=== PATIENT | female | born 1975 | race Caucasian/White ===

== ENCOUNTER 2020-10-31 06:40 | Day surgery (SDC) | payer MEDICAID ==
[2020-10-31] MEDS ORDERED: Sodium Chloride 0.9% 1,000 ML IV SCH (07:00)
[2020-10-31] MEDS ORDERED: Propofol 200 MG/20 ML SDV ONE (07:12)
[2020-10-31] MEDS ORDERED: Midazolam 1 MG/ML 2 ML SDV ONE (07:13)
[2020-10-31] MEDS ORDERED: fentaNYL 100 MCG/2 ML SDV ONE (07:13)
[2020-10-31 10:05] VITALS: BP 115/71; PULSE 46
--- NOTE | 2020-10-31 10:38 | OR ---
DATE OF PROCEDURE: 10/31/2020 SURGEON: Bobby Higgins MD PROCEDURE: Colonoscopy. FINDINGS: 5 mm polyp in the ascending colon, approximately 5 mm, completely removed using cold biopsy forceps. COMPLICATIONS: None. BUSINESS ANALYTICS SPECIALIST: None. ANESTHESIA: MAC. RISKS: Risks, benefits, alternatives, and limitations including but not limited to infection, bleeding, and perforation along with false positives and false negatives were explained to the patient who wished to proceed. PROCEDURE IN DETAIL: The patient was placed in left lateral decubitus position. Digital rectal exam was performed without abnormality. Scope was introduced and advanced atraumatically to the ileocecal valve. A photo was taken. Scope was brought back to the ascending, transverse, descending colon, and retroflexed. No evidence of old or new blood. No masses. The diverticulosis would be described as mild, limited to sigmoid colon without evidence of diverticulitis or bleeding. No abnormalities on retroflexion. The prep was acceptable. Approximately 95% luminal surface could be seen. Greater than 8 minutes was spent removing the scope. The patient tolerated the procedure well. Bobby Higgins MD /[id number]
== END 2020-10-31 09:50 | disposition home or self-care (01) ==
LOC: JP.SDS 06:40
PROVIDERS: ATTEND Surgery
DX: Z12.11 Encounter for screening for malignant neoplasm of colon (principal); K63.5 Polyp of colon; J45.909 Unspecified asthma, uncomplicated; E66.9 Obesity, unspecified; Z86.010 Personal history of colon polyps; Z68.33 Body mass index [BMI] 33.0-33.9, adult
CPT/HCPCS: J2250; J2704; J3010; J7030

== ENCOUNTER 2021-12-24 17:13 | Emergency (ER) | payer MEDICAID ==
[2021-12-24 17:42] VITALS: BP 138/95; PULSE 94
[2021-12-24] MEDS ORDERED: Ketorolac 30 MG/ML SDV IM ONE (18:57)
[2021-12-24] MEDS ORDERED: Iopamidol 612 MG/ML 100 ML Bottle IV SCH (20:15)
[2021-12-24] MEDS ORDERED: Sodium Chloride 0.9% 75 ML IV SCH (20:15)
== END 2021-12-24 21:19 | disposition home or self-care (01) ==
LOC: JP.ED 17:13
DX: K57.92 Diverticulitis of intestine, part unspecified, without perforation or abscess without bleeding (principal); J45.909 Unspecified asthma, uncomplicated; Z90.710 Acquired absence of both cervix and uterus; Z88.0 Allergy status to penicillin; Z88.1 Allergy status to other antibiotic agents; Z91.09 Other allergy status, other than to drugs and biological substances
CPT/HCPCS: 36415; 74177; 76830; 76830-26; 76857; 76857-26; 80053; 83605; 85025; 86140; 96372; 99282; 99284-25; J1885; J3490; Q9967

== ENCOUNTER 2022-01-15 05:32 | Day surgery (SDC) | payer MEDICAID ==
[2022-01-15] MEDS ORDERED: Acetaminophen 500 MG Tab PO ONE (05:45)
[2022-01-15] MEDS ORDERED: Clindamycin Phosphate 900 MG in Sodium Chloride 0.9% 100 ML IV ONE (06:30)
[2022-01-15] MEDS ORDERED: Albuterol/Ipratropium 3.0-0.5 MG/3 ML Neb Soln NEB ONE (06:30)
[2022-01-15] MEDS ORDERED: Lidocaine 1% with EPINEPHrine 1:100,000 50 ML MDV ONE (06:44)
[2022-01-15] MEDS ORDERED: Bupivacaine 0.5% 50 ML MDV ONE (06:44)
[2022-01-15] MEDS ORDERED: Propofol 200 MG/20 ML SDV ONE (07:00)
[2022-01-15] MEDS ORDERED: fentaNYL 100 MCG/2 ML SDV ONE ×2 (07:00→07:46)
[2022-01-15] MEDS ORDERED: Midazolam 1 MG/ML 2 ML SDV ONE (07:00)
[2022-01-15] MEDS ORDERED: Dextrose 5%-Lactated Ringers 1,000 ML IV SCH (07:15)
[2022-01-15] MEDS ORDERED: Ketamine 18 MG in Sodium Chloride 0.9% 19.82 ML IV SCH (07:30)
[2022-01-15] MEDS ORDERED: Ketamine 500 MG/5 ML MDV IV SCH (07:30)
[2022-01-15] MEDS ORDERED: Glycopyrrolate 0.2 MG/ML 5 ML MDV ONE (07:43)
[2022-01-15] MEDS ORDERED: Neostigmine Methylsulfate 1 MG/ML 5 ML Syringe ONE (07:43)
[2022-01-15] MEDS ORDERED: Ketorolac 30 MG/ML SDV ONE (07:43)
[2022-01-15 09:42] VITALS: BP 125/79; PULSE 60
== END 2022-01-15 09:44 | disposition home or self-care (01) ==
LOC: JP.SDS 05:32
PROVIDERS: ATTEND Surgery
DX: D17.1 Benign lipomatous neoplasm of skin and subcutaneous tissue of trunk (principal); E53.8 Deficiency of other specified B group vitamins; E66.9 Obesity, unspecified; J45.40 Moderate persistent asthma, uncomplicated; E55.9 Vitamin D deficiency, unspecified; F17.200 Nicotine dependence, unspecified, uncomplicated; Z79.899 Other long term (current) drug therapy; Z88.1 Allergy status to other antibiotic agents; Z98.890 Other specified postprocedural states; Z88.8 Allergy status to other drugs, medicaments and biological substances; Z68.36 Body mass index [BMI] 36.0-36.9, adult
CPT/HCPCS: 94640; A9270-GY; J1885; J2250; J2704; J2710; J3010; J3490; J7121; J7620

== ENCOUNTER 2022-02-10 23:20 | Emergency (ER) | payer MEDICAID ==
[2022-02-10] MEDS ORDERED: Sodium Chloride 0.9% 1,000 ML IV SCH (23:45)
[2022-02-10] MEDS ORDERED: Sodium Chloride 0.9% 10 ML Syringe FLUSH PRN (23:50)
[2022-02-10] MEDS ORDERED: HYDROmorphone 1 MG/ML Syringe IVPUSH ONE (23:50)
[2022-02-10] MEDS ORDERED: Ondansetron 4 MG/2 ML SDV IVPUSH ONE (23:50)
[2022-02-11] MEDS ORDERED: Iopamidol 612 MG/ML 100 ML Bottle IV STA (00:14)
[2022-02-11] MEDS ORDERED: Sodium Chloride 0.9% 50 ML IV STA (00:14)
[2022-02-11 00:31] LABS: ESTIMATED GFR > 60 (>60)
[2022-02-11 00:54] LABS: CORONAVIRUS COVID-19 NAA NEGATIVE (NEGATIVE)
[2022-02-11] MEDS ORDERED: Pantoprazole 40 MG Tab.CR PO STA (01:17)
[2022-02-11 01:31] VITALS: BP 115/54; PULSE 57
== END 2022-02-11 02:25 | disposition home or self-care (01) ==
LOC: JP.ED 23:20
DX: K21.00 Gastro-esophageal reflux disease with esophagitis, without bleeding (principal); Z88.0 Allergy status to penicillin; Z88.1 Allergy status to other antibiotic agents; Z88.8 Allergy status to other drugs, medicaments and biological substances; Z20.822 Contact with and (suspected) exposure to COVID-19
CPT/HCPCS: 0241U; 36415; 74177; 80053; 81001; 83605; 83690; 85025; 96361; 96374; 96375; 99283; 99284-25; A9270-GY; J1170; J2405; J3490; J7030; Q9967

== ENCOUNTER 2022-02-16 16:53 | Emergency (ER) | payer MEDICAID ==
[2022-02-16 17:06] VITALS: BP 136/74; PULSE 64
[2022-02-16] MEDS ORDERED: Ketorolac 30 MG/ML SDV IM ONE (18:00)
[2022-02-16] MEDS ORDERED: Alum Hydrox/Mag Hydrox/Simeth 15 ML, Lidocaine 2% 15 ML PO ONE ×2 (18:11)
[2022-02-16 18:37] LABS: ESTIMATED GFR 62 mL/min (>60)
[2022-02-16] MEDS ORDERED: Famotidine 20 MG Tab PO ONE (19:40)
[2022-02-16] MEDS ORDERED: Sucralfate Suspension 1 GM/10 ML Cup PO ONE (19:40)
== END 2022-02-16 20:12 | disposition home or self-care (01) ==
LOC: JP.ED 16:53
DX: K29.70 Gastritis, unspecified, without bleeding (principal); L98.8 Other specified disorders of the skin and subcutaneous tissue; K21.9 Gastro-esophageal reflux disease without esophagitis; F41.9 Anxiety disorder, unspecified; F32.A Depression, unspecified; Z79.899 Other long term (current) drug therapy; Z88.1 Allergy status to other antibiotic agents; Z91.040 Latex allergy status; Z88.8 Allergy status to other drugs, medicaments and biological substances
CPT/HCPCS: 36415; 80053; 82150; 83690; 85025; 96372; 99284; A9270; J1885; 99282

== ENCOUNTER 2022-02-25 12:55 | Emergency (ER) | payer MEDICAID ==
[2022-02-25 14:37] LABS: ESTIMATED GFR 91 mL/min (>60)
[2022-02-25] MEDS ORDERED: traMADol 50 MG Tab PO ONE (15:15)
[2022-02-25] MEDS ORDERED: cefTRIAXone 1 GM, Lidocaine 1% 2.1 ML IM ONE ×2 (15:16)
[2022-02-25 16:20] VITALS: BP 117/81; PULSE 63
== END 2022-02-25 16:39 | disposition home or self-care (01) ==
LOC: JP.ED 12:55
DX: N30.01 Acute cystitis with hematuria (principal); Z88.0 Allergy status to penicillin; Z88.1 Allergy status to other antibiotic agents; Z88.8 Allergy status to other drugs, medicaments and biological substances; Z86.16 Personal history of COVID-19; Z87.891 Personal history of nicotine dependence
CPT/HCPCS: 36415; 80053; 81001; 83605; 85025; 86140; 87086; 96372; 99282; 99283; A9270; J0696

== ENCOUNTER 2022-07-06 00:25 | Observation (INO) | payer MEDICAID ==
[2022-07-06] MEDS ORDERED: Sodium Chloride 0.9% 10 ML Syringe FLUSH PRN ×2 (01:14→01:45)
[2022-07-06] MEDS ORDERED: Sodium Chloride 0.9% 1,000 ML IV SCH (01:15)
[2022-07-06] MEDS ORDERED: Ondansetron 4 MG/2 ML SDV IVPUSH ONE (01:16)
[2022-07-06] MEDS ORDERED: fentaNYL 100 MCG/2 ML SDV IVPUSH ONE (01:16)
[2022-07-06] MEDS ORDERED: Iopamidol 612 MG/ML 100 ML Bottle IV PRN (01:45)
[2022-07-06] MEDS ORDERED: Sodium Chloride 0.9% 75 ML IV SCH (01:45)
[2022-07-06 01:56] LABS: ESTIMATED GFR 79 mL/min (>60); TROPONIN I HIGH SENSITIVITY 4.1 pg/mL (<=60.3)
[2022-07-06] MEDS ORDERED: HYDROmorphone 1 MG/ML Syringe IVPUSH ONE (02:58)
[2022-07-06] MEDS ORDERED: cefTRIAXone 1 GM in Sodium Chloride 0.9% 50 ML IV ONE (08:58)
[2022-07-06] MEDS ORDERED: metroNIDAZOLE/Normal Saline 500 MG in Premix Bag 1 BAG IV ONE (09:00)
[2022-07-06] MEDS ORDERED: Bupivacaine 0.5%/EPINEPHrine 1:200,000 50 ML MDV ONE (09:37)
[2022-07-06] MEDS ORDERED: Indocyanine Green 25 MG SDV ONE (09:37)
[2022-07-06] MEDS ORDERED: Neostigmine Methylsulfate 1 MG/ML 5 ML Syringe ONE (10:09)
[2022-07-06] MEDS ORDERED: Rocuronium 50 MG/5 ML Vial ONE (10:09)
[2022-07-06] MEDS ORDERED: Glycopyrrolate 0.2 MG/ML 5 ML MDV ONE (10:09)
[2022-07-06] MEDS ORDERED: fentaNYL 250 MCG/5 ML SDV ONE (10:09)
[2022-07-06] MEDS ORDERED: Propofol 200 MG/20 ML SDV ONE (10:09)
[2022-07-06] MEDS ORDERED: Succinylcholine 200 MG/10 ML MDV ONE (10:09)
[2022-07-06] MEDS ORDERED: Dexamethasone 4 MG/ML SDV ONE (10:09)
[2022-07-06] MEDS ORDERED: Ondansetron 4 MG/2 ML SDV ONE (10:09)
[2022-07-06] MEDS ORDERED: Sodium Chloride 0.9% 10 ML ONE (10:13)
[2022-07-06] MEDS ORDERED: fentaNYL 100 MCG/2 ML SDV ONE (11:38)
[2022-07-06] MEDS ORDERED: Ondansetron 4 MG Tab.DIS PO PRN (12:09)
[2022-07-06] MEDS: oxyCODONE 5 MG Tab PO PRN ×3 (12:41→21:01)
[2022-07-06] MEDS: Acetaminophen 325 MG Tab PO PRN ×3 (12:41→21:01)
[2022-07-06] MEDS ORDERED: LORazepam 1 MG Tab PO PRN (20:19)
[2022-07-06] MEDS ORDERED: Albuterol 90 MCG/6.7 GM Inhaler INH PRN (20:48)
[2022-07-06] MEDS ORDERED: MONTELUKAST 10 MG PO SCH (21:00)
[2022-07-06] MEDS: BUDESONIDE INH SCH (21:02)
[2022-07-06] MEDS: FORMOTEROL INH SCH (21:02)
[2022-07-06] MEDS: FLUTICASONE NAS SCH (21:03)
[2022-07-07] MEDS: oxyCODONE 5 MG Tab PO PRN ×3 (01:26→11:11)
[2022-07-07] MEDS: Acetaminophen 325 MG Tab PO PRN ×3 (01:26→11:12)
[2022-07-07 04:49] LABS: ESTIMATED GFR 79 mL/min (>60)
[2022-07-07] MEDS: BUDESONIDE INH SCH (05:10)
[2022-07-07] MEDS: FORMOTEROL INH SCH (05:10)
[2022-07-07] MEDS: FLUTICASONE NAS SCH (08:45)
[2022-07-07] MEDS ORDERED: FLUOXETINE 20 MG PO SCH ×2 (09:00→21:00)
[2022-07-07] MEDS ORDERED: FORMOTEROL INH SCH (09:00)
[2022-07-07] MEDS ORDERED: BUDESONIDE INH SCH (09:00)
[2022-07-07] MEDS ORDERED: LORATADINE 10 MG PO SCH ×2 (09:00→21:00)
[2022-07-07 11:15] VITALS: BP 136/80; PULSE 58
== END 2022-07-07 11:28 | disposition home or self-care (01) ==
LOC: JP.ED 00:25 → JP.SDS 09:48 → JP.MS 12:09
PROVIDERS: ADMIT Student in an Organized Health Care Education/Training Program; ATTEND Student in an Organized Health Care Education/Training Program
DX: K80.12 Calculus of gallbladder with acute and chronic cholecystitis without obstruction (principal); K82.8 Other specified diseases of gallbladder; J45.909 Unspecified asthma, uncomplicated; E66.9 Obesity, unspecified; Z01.812 Encounter for preprocedural laboratory examination; Z98.890 Other specified postprocedural states; Z79.899 Other long term (current) drug therapy; Z88.1 Allergy status to other antibiotic agents; Z88.8 Allergy status to other drugs, medicaments and biological substances; Z87.891 Personal history of nicotine dependence; Z86.73 Personal history of transient ischemic attack (TIA), and cerebral infarction without residual deficits; Z20.822 Contact with and (suspected) exposure to COVID-19
CPT/HCPCS: 36415; 47562; 74177; 76705; 80053; 81001; 81025; 83605; 83690; 83735; 84100; 84484; 85025; 85027; 87086; 87635; 94640; A9270; J0330; J0696; J1100; J1170; J2405; J2704; J2710; J3010; J3490; J7030; Q9967; 88304; U0002

== ENCOUNTER 2022-09-08 18:28 | Emergency (ER) | payer MEDICAID ==
[2022-09-08 18:39] VITALS: BP 129/67; PULSE 57
== END 2022-09-08 19:38 | disposition home or self-care (01) ==
LOC: JP.ED 18:28
DX: G89.18 Other acute postprocedural pain (principal); Z88.0 Allergy status to penicillin; Z88.1 Allergy status to other antibiotic agents; Z88.6 Allergy status to analgesic agent; Z91.048 Other nonmedicinal substance allergy status; Z79.899 Other long term (current) drug therapy; Z86.16 Personal history of COVID-19; Z90.710 Acquired absence of both cervix and uterus
CPT/HCPCS: 29125; 99281; 99282

== ENCOUNTER 2024-06-01 08:02 | Day surgery (SDC) | payer MEDICAID ==
[2024-06-01] MEDS: Sodium Chloride 0.9% 1,000 ML IV SCH (08:57)
[2024-06-01] MEDS ORDERED: fentaNYL 50 MCG/ML SDV ONE (09:21)
[2024-06-01] MEDS ORDERED: Midazolam 1 MG/ML 2 ML SDV ONE (09:21)
[2024-06-01] MEDS ORDERED: Propofol 200 MG/20 ML SDV ONE ×2 (09:22→09:32)
[2024-06-01 10:55] VITALS: BP 109/67; PULSE 52
== END 2024-06-01 10:56 | disposition home or self-care (01) ==
LOC: JP.SDS 08:02
PROVIDERS: ATTEND Surgery
DX: K57.30 Diverticulosis of large intestine without perforation or abscess without bleeding (principal); E66.9 Obesity, unspecified
CPT/HCPCS: 00813; 43239; 45378; 88305; J2250; J2704; J3010; J7030

== ENCOUNTER 2024-08-27 17:15 | Inpatient (IN) | payer MEDICAID ==
[2024-08-27 18:15] LABS: BASOPHILS ABSOLUTE AUTO 0.07 K/uL (0.00-0.10); BASOPHILS PERCENT AUTO 0.6 % (0.1-1.3); EOSINOPHILS ABSOLUTE AUTO 0.51 K/uL (0.00-0.40); EOSINOPHILS PERCENT AUTO 4.3 % (0.0-5.4); HEMATOCRIT 39.5 % (34.3-46.0); HEMOGLOBIN 13.6 g/dL (11.2-15.5); IMMATURE GRAN ABSOLUTE AUTO 0.03 K/uL (0.00-0.23); IMMATURE GRAN PERCENT AUTO 0.3 % (0.0-0.7); LYMPHOCYTES ABSOLUTE AUTO 4.31 K/uL (0.8-3.3); LYMPHOCYTES PERCENT AUTO 36.7 % (11.4-47.7); MEAN CORPUSCULAR HGB CONC 34.4 g/dL (31.6-35.5); MEAN CORPUSCULAR VOLUME 87.2 fL (81.4-99.0); MONOCYTES ABSOLUTE AUTO 1.04 K/uL (0.20-0.90); MONOCYTES PERCENT AUTO 8.9 % (3.3-12.6); NEUTROPHILS ABSOLUTE AUTO 5.78 K/uL (1.0-7.6); NEUTROPHILS PERCENT AUTO 49.2 % (40.0-78.1); PLATELET COUNT,PLT 273 K/uL (130-375); RED BLOOD CELL COUNT 4.53 M/uL (3.77-5.24); WHITE BLOOD CELL COUNT,WBC 11.7 K/uL (3.2-11.0)
[2024-08-27 18:25] LABS: ALANINE AMINOTRANSFERASE,ALT 37 U/L (12-78); ALBUMIN 3.8 g/dL (3.4-5.0); ALKALINE PHOSPHATASE 95 U/L (46-116); ANION GAP 5.8 mmol/L (5.0-14.0); ASPARTATE AMNIOTRANSFERASE,AST 23 U/L (15-37); BILIRUBIN TOTAL 0.3 mg/dL (0.2-1.0); BLOOD UREA NITROGEN,BUN 10 mg/dL (7-18); CALCIUM 9.3 mg/dL (8.5-10.1); CARBON DIOXIDE,CO2 31 mmol/L (21-32); CHLORIDE,CL 103 mmol/L (100-108); CREATININE 0.9 mg/dL (0.6-1.0); EST CRCL DRUG DOSING (CG) 73.53 mL/min; ESTIMATED GFR 78 mL/min (>60); GLUCOSE RANDOM 99 mg/dL (74-106); POTASSIUM,K 3.7 mmol/L (3.6-5.2); PROTEIN TOTAL,TP 7.5 g/dL (6.4-8.2); SODIUM,NA 140 mmol/L (140-148)
[2024-08-27] MEDS: HYDROmorphone 0.5 MG/0.5 ML Syringe IVPUSH ONE ×2 (19:01→20:59)
[2024-08-27] MEDS: Sodium Chloride 0.9% 1,000 ML IV SCH ×3 (19:04→22:53)
[2024-08-27] MEDS: Iopamidol 612 MG/ML 100 ML Bottle IV ONE (19:32)
[2024-08-27] MEDS: Sodium Chloride 0.9% 60 ML IV ONE (19:33)
[2024-08-27] MEDS: Sodium Chloride 0.9% 10 ML Syringe FLUSH ONE (19:33)
[2024-08-27 20:35] LABS: APPEARANCE,URINE CLEAR (CLEAR); BILIRUBIN,URINE NEGATIVE (NEGATIVE); COLOR,URINE YELLOW (YELLOW); GLUCOSE,URINE NEGATIVE (NEGATIVE); KETONES,URINE NEGATIVE (NEGATIVE); LEUKOCYTE ESTERASE,URINE NEGATIVE (NEGATIVE); NITRITE,URINE NEGATIVE (NEGATIVE); OCCULT BLOOD,URINE TRACE-INTACT (NEGATIVE); PROTEIN,URINE NEGATIVE (NEGATIVE); UROBILINOGEN,URINE 0.2 EU/dL (0.2-1.0)
[2024-08-27 20:42] LABS: AMORPHOUS SEDIMENT,URINE NOT SEEN; BACTERIA,URINE FEW; EPITHELIAL CELLS,URINE RARE; MUCUS,URINE NOT SEEN; RBC,URINE 0-5 (0-5); WBC,URINE 0-5 (0-5)
[2024-08-27] MEDS ORDERED: Sennosides/Docusate Sodium 50-8.6 MG Tab PO PRN (22:33)
[2024-08-27] MEDS ORDERED: Melatonin 3 MG Tab PO PRN (22:33)
[2024-08-27] MEDS ORDERED: LORazepam 2 MG/ML SDV IVPUSH PRN (22:33)
[2024-08-27] MEDS ORDERED: Ondansetron 4 MG/2 ML SDV IV PRN (22:33)
[2024-08-27] MEDS ORDERED: Magnesium Hydroxide 400 MG/5 ML Susp 30 ML Cup PO PRN (22:33)
[2024-08-27] MEDS ORDERED: Naloxone 0.4 MG/ML SDV IVPUSH PRN (22:33)
[2024-08-27] MEDS ORDERED: HYDROmorphone 1 MG/ML Syringe IVPUSH PRN (22:33)
[2024-08-27] MEDS: Ondansetron 4 MG Tab.DIS PO PRN (22:53)
[2024-08-28] MEDS: Pantoprazole 40 MG Tab.CR PO SCH (00:57)
[2024-08-28 04:49] LABS: HEMATOCRIT 36.5 % (34.3-46.0); HEMOGLOBIN 12.2 g/dL (11.2-15.5); MEAN CORPUSCULAR HEMOGLOBIN 29.7 pg (31.6-35.5); MEAN CORPUSCULAR HGB CONC 33.4 g/dL (31.6-35.5); MEAN CORPUSCULAR VOLUME 88.8 fL (81.4-99.0); RED BLOOD CELL COUNT 4.11 M/uL (3.77-5.24); WHITE BLOOD CELL COUNT,WBC 10.8 K/uL (3.2-11.0)
[2024-08-28 05:11] LABS: ANION GAP 3.9 mmol/L (5.0-14.0); CALCIUM 8.6 mg/dL (8.5-10.1); CREATININE 0.9 mg/dL (0.6-1.0); EST CRCL DRUG DOSING (CG) 73.53 mL/min; POTASSIUM,K 4.4 mmol/L (3.6-5.2)
[2024-08-28] MEDS: Acetaminophen 325 MG Tab PO PRN (05:43)
[2024-08-28] MEDS: LORazepam 1 MG Tab PO PRN (06:25)
[2024-08-28] MEDS ORDERED: HYDROmorphone 0.5 MG/0.5 ML Syringe IVPUSH PRN (07:00)
[2024-08-28] MEDS: FLUoxetine 20 MG Cap PO SCH (09:18)
[2024-08-28] MEDS: Formoterol/Mometasone 200-5 MCG 8.8 GM Inhaler INH SCH (09:18)
[2024-08-28] MEDS ORDERED: Ketorolac 30 MG/ML SDV IVPUSH PRN (10:40)
[2024-08-28] MEDS: traMADol 50 MG Tab PO PRN (11:18)
[2024-08-28] MEDS: Sodium Chloride 0.9% 1,000 ML IV SCH (17:55)
[2024-08-29 04:36] LABS: HEMATOCRIT 37.3 % (34.3-46.0); HEMOGLOBIN 12.6 g/dL (11.2-15.5); MEAN CORPUSCULAR HGB CONC 33.8 g/dL (31.6-35.5); MEAN CORPUSCULAR VOLUME 88.8 fL (81.4-99.0); RED BLOOD CELL COUNT 4.2 M/uL (3.77-5.24); WHITE BLOOD CELL COUNT,WBC 10.1 K/uL (3.2-11.0)
[2024-08-29 04:59] LABS: A/G RATIO 0.9 (1.2-2.2); ALANINE AMINOTRANSFERASE,ALT 29 U/L (12-78); ALBUMIN 3.4 g/dL (3.4-5.0); ALKALINE PHOSPHATASE 73 U/L (46-116); ANION GAP 5.4 mmol/L (5.0-14.0); ASPARTATE AMNIOTRANSFERASE,AST 22 U/L (15-37); BILIRUBIN TOTAL 0.5 mg/dL (0.2-1.0); BLOOD UREA NITROGEN,BUN 6 mg/dL (7-18); C-REACTIVE PROTEIN 3.38 mg/dL (<0.50); CALCIUM 8.9 mg/dL (8.5-10.1); CARBON DIOXIDE,CO2 32 mmol/L (21-32); CHLORIDE,CL 104 mmol/L (100-108); CREATININE 0.9 mg/dL (0.6-1.0); EST CRCL DRUG DOSING (CG) 73.53 mL/min; ESTIMATED GFR 78 mL/min (>60); GLUCOSE RANDOM 83 mg/dL (74-106); POTASSIUM,K 4.6 mmol/L (3.6-5.2); PROTEIN TOTAL,TP 7.1 g/dL (6.4-8.2); SODIUM,NA 141 mmol/L (140-148)
[2024-08-30 05:04] LABS: ANION GAP 4.5 mmol/L (5.0-14.0); CALCIUM 9.5 mg/dL (8.5-10.1); CREATININE 0.9 mg/dL (0.6-1.0); EST CRCL DRUG DOSING (CG) 73.53 mL/min; POTASSIUM,K 4.7 mmol/L (3.6-5.2)
[2024-08-30 11:02] VITALS: BP 100/56; PULSE 66
== END 2024-08-30 12:38 | disposition home or self-care (01) | DRG 440 ==
LOC: JP.ED 17:15 → JP.MS 21:33 → OBSVTOIN 08-28 12:34
PROVIDERS: ADMIT Registered Nurse; ATTEND Internal Medicine
DX: K85.90 Acute pancreatitis without necrosis or infection, unspecified (principal); K58.9 Irritable bowel syndrome, unspecified; J45.909 Unspecified asthma, uncomplicated; M19.90 Unspecified osteoarthritis, unspecified site; F41.9 Anxiety disorder, unspecified; F32.A Depression, unspecified; Z88.0 Allergy status to penicillin; Z79.51 Long term (current) use of inhaled steroids; Z79.52 Long term (current) use of systemic steroids; Z79.899 Other long term (current) drug therapy; Z87.81 Personal history of (healed) traumatic fracture; Z86.16 Personal history of COVID-19; Z98.890 Other specified postprocedural states; Z90.710 Acquired absence of both cervix and uterus; Z90.49 Acquired absence of other specified parts of digestive tract; Z87.891 Personal history of nicotine dependence
CPT/HCPCS: 36415; 74177; 80048; 80053; 81001; 82150; 83690; 85025; 85027; 86140; 96361; 96374; 96376; 99222; 99231; 99232; 99238; 99285; 99285-25; A9270-GY; G0378; J7030; Q0162; Q9967

== ENCOUNTER 2025-06-25 11:50 | Emergency (ER) | payer MEDICAID ==
[2025-06-25 13:56] VITALS: BP 121/78; PULSE 45
[2025-06-25 14:34] LABS: APPEARANCE,URINE CLEAR (CLEAR); GLUCOSE,URINE NEGATIVE (NEGATIVE); OCCULT BLOOD,URINE NEGATIVE (NEGATIVE)
[2025-06-25 14:37] LABS: BASOPHILS ABSOLUTE AUTO 0.06 K/uL (0.00-0.10); BASOPHILS PERCENT AUTO 0.6 % (0.1-1.3); EOSINOPHILS ABSOLUTE AUTO 0.41 K/uL (0.00-0.40); EOSINOPHILS PERCENT AUTO 4.4 % (0.0-5.4); IMMATURE GRAN ABSOLUTE AUTO 0.02 K/uL (0.00-0.23); IMMATURE GRAN PERCENT AUTO 0.2 % (0.0-0.7); LYMPHOCYTES ABSOLUTE AUTO 4.68 K/uL (0.8-3.3); LYMPHOCYTES PERCENT AUTO 49.7 % (11.4-47.7); MONOCYTES ABSOLUTE AUTO 0.68 K/uL (0.20-0.90); MONOCYTES PERCENT AUTO 7.2 % (3.3-12.6); NEUTROPHILS ABSOLUTE AUTO 3.57 K/uL (1.0-7.6); NEUTROPHILS PERCENT AUTO 37.9 % (40.0-78.1); PLATELET COUNT,PLT 289 K/uL (130-375); RED BLOOD CELL COUNT 4.77 M/uL (3.77-5.24); WHITE BLOOD CELL COUNT,WBC 9.4 K/uL (3.2-11.0)
[2025-06-25 14:47] LABS: SQUAMOUS EPITHELIAL CELLS,UR RARE /HPF; UROTHELIAL CELLS,URINE NOT SEEN /HPF
[2025-06-25] MEDS: Ondansetron 4 MG Tab.DIS PO ONE (14:47)
[2025-06-25 14:48] LABS: A/G RATIO 1.2 (1.2-2.2); ALANINE AMINOTRANSFERASE,ALT 31 U/L (12-78); ASPARTATE AMNIOTRANSFERASE,AST 24 U/L (15-37); BILIRUBIN TOTAL 0.4 mg/dL (0.2-1.0); BLOOD UREA NITROGEN,BUN 8 mg/dL (7-18); CARBON DIOXIDE,CO2 32 mmol/L (21-32); CHLORIDE,CL 101 mmol/L (100-108); CREATININE 0.8 mg/dL (0.6-1.0); EST CRCL DRUG DOSING (CG) 81.81 mL/min; ESTIMATED GFR 90 mL/min (>60); GLUCOSE RANDOM 90 mg/dL (74-106); POTASSIUM,K 4.9 mmol/L (3.6-5.2); PROTEIN TOTAL,TP 7.8 g/dL (6.4-8.2); SODIUM,NA 139 mmol/L (140-148)
== END 2025-06-25 17:37 | disposition home or self-care (01) ==
LOC: JP.ED 11:50
DX: K57.30 Diverticulosis of large intestine without perforation or abscess without bleeding (principal); J45.909 Unspecified asthma, uncomplicated; Z86.16 Personal history of COVID-19; Z90.49 Acquired absence of other specified parts of digestive tract; Z90.710 Acquired absence of both cervix and uterus; Z87.891 Personal history of nicotine dependence; Z88.0 Allergy status to penicillin; Z91.048 Other nonmedicinal substance allergy status; Z79.899 Other long term (current) drug therapy
CPT/HCPCS: 36415; 74176; 80053; 81001; 83690; 85025; 86140; 99284; A9270; Q0162